=== PATIENT | female | born 1975 | race Caucasian/White ===

== ENCOUNTER 2018-08-14 19:39 | Inpatient (IN) | payer MEDICAID ==
[2018-08-14] MEDS ORDERED: LABETALOL HCL 20MG INJ IV (21:00)
[2018-08-14] MEDS ORDERED: MAGNESIUM SULFATE 4 GM/100 ML 100 ML (21:04)
[2018-08-14] MEDS ORDERED: MAGNESIUM SULFATE 20 GM/500 ML 500 ML IV (21:04)
[2018-08-14] MEDS: LACTATED RINGER'S 1,000 ML IV (21:23)
[2018-08-14] MEDS: MAGNESIUM SULFATE 4 GM/100 ML 100 ML IVPB (21:26)
[2018-08-14] MEDS ORDERED: LACTATED RINGER'S 1,000 ML IV (21:30)
[2018-08-14] MEDS: MAGNESIUM SULFATE 20 GM/500 ML 500 ML IV (21:47)
[2018-08-14 22:00] LABS: ADD MAN DIFF? NO
[2018-08-14 22:02] LABS: BASOPHILS % 0.3 % (0.0-2.0); EOSINOPHILS # 0.3 10^3/ul (0.0-0.5); EOSINOPHILS % 3.6 % (0.0-7.0); HEMATOCRIT 31.3 % (37.0-47.0); HEMOGLOBIN 11.1 g/dl (12.0-16.0); LYMPHOCYTES # 2.3 10^3/ul (0.8-2.9); LYMPHOCYTES % 25.6 % (15.0-51.0); MEAN CORPUSCULAR HEMOGLOBIN 31.4 pg (29.0-33.0); MEAN CORPUSCULAR HGB CONC 35.5 g/dl (32.0-37.0); MEAN CORPUSCULAR VOLUME 88.4 fl (82.0-101.0); MEAN PLATELET VOLUME 11.5 fl (7.4-10.4); MONOCYTE # 0.7 10^3/ul (0.3-0.9); MONOCYTES % 8.2 % (0.0-11.0); NEUTROPHIL # 5.6 10^3/ul (1.6-7.5); PLATELET COUNT 198 10^3/UL (140-415); RED BLOOD COUNT 3.54 10^6/ul (4.20-5.40); RED CELL DISTRIBUTION WIDTH 13.2 % (11.5-14.5)
[2018-08-14 22:07] LABS: ADD UMIC YES; UR ASCORBIC ACID NEGATIVE (NEGATIVE); UR BILIRUBIN (Dip) NEGATIVE (NEGATIVE); UR BLOOD (Dip) NEGATIVE (NEGATIVE); UR CLARITY CLOUDY (CLEAR); UR COLOR YELLOW (YELLOW); UR GLUCOSE (Dip) 1+ mg/dL (NEGATIVE); UR KETONES (Dip) TRACE mg/dL (NEGATIVE); UR LEUKOCYTE ESTERASE (Dip) NEGATIVE Leu/ul (NEGATIVE); UR MUCUS FEW /HPF (NONE SEEN); UR NITRITE (Dip) NEGATIVE (NEGATIVE); UR RBC 1 /HPF (0-5); UR SPECIFIC GRAVITY (Dip) 1.026 (1.003-1.030); UR SQUAMOUS EPITHELIAL CELL MANY /HPF (FEW); UR TOTAL PROTEIN (Dip) 2+ mg/dl (NEGATIVE); UR UROBILINOGEN (Dip) NEGATIVE (NEGATIVE); UR WBC 2 /HPF (0-5)
[2018-08-14 22:21] LABS: ALANINE AMINOTRANSFERASE 16 IU/L (13-69); ALBUMIN 3.5 g/dl (3.3-4.9); ALBUMIN/GLOBULIN RATIO 0.97; ALKALINE PHOSPHATASE 80 IU/L (42-121); ANION GAP 12 (5-13); ASPARTATE AMINO TRANSFERASE 19 IU/L (15-46); BILIRUBIN,INDIRECT 0.1 mg/dl (0-1.1); BILIRUBIN,TOTAL 0.1 mg/dl (0.2-1.3); BLOOD UREA NITROGEN 23 mg/dl (7-20); CALCIUM 9.5 mg/dl (8.4-10.2); CARBON DIOXIDE 21 mmol/L (21-31); CHLORIDE 104 mmol/L (97-110); CREATININE 0.64 mg/dl (0.44-1.00); Estimated GFR > 60 mL/min (>60); GLUCOSE 107 mg/dl (70-220); INR 0.87; PARTIAL THROMBOPLASTIN TIME 25.8 Sec (23.0-35.0); POTASSIUM 3.7 mmol/L (3.5-5.1); PROTIME 11.9 Sec (11.9-14.9); PT RATIO 0.9; SODIUM 137 mmol/L (135-144); TOTAL PROTEIN 7.1 g/dl (6.1-8.1); URIC ACID 6.1 mg/dl (3.1-7.9)
[2018-08-14] MEDS: LABETALOL HCL 20MG INJ IV ×2 (22:33→23:27)
[2018-08-14] MEDS: BETAMET NA PHOS/AC(6 MG/ML) 2 ML INJ SYG IM (23:22)
[2018-08-15] MEDS ORDERED: CEFAZOLIN 2 GM/50 ML (PMX) 50 ML IVPB (00:46)
[2018-08-15] MEDS: HYDROCODONE/APAP (5/325) TAB PO (00:55)
[2018-08-15] MEDS: LABETALOL HCL 20MG INJ IV ×5 (00:57→04:30)
[2018-08-15] MEDS ORDERED: CARBOPROST 250 MCG INJ IM ×2 (01:00→04:00)
[2018-08-15] MEDS ORDERED: OXYTOCIN 30 UNITS/LR 500 ML IV ×3 (01:00→04:00)
[2018-08-15] MEDS ORDERED: MISOPROSTOL 200 MCG TAB PR ×2 (01:00→04:00)
[2018-08-15] MEDS: LABETALOL 200 MG TAB PO ×4 (01:00→22:08)
[2018-08-15] MEDS ORDERED: METHYLERGONOVINE 0.2 MG INJ IM (01:00)
[2018-08-15 01:57] LABS: HEPATITIS B SURFACE ANTIGEN NEGATIVE (NEGATIVE)
[2018-08-15] MEDS ORDERED: morphine SULFATE/PF (10 MG/10 ML) INJ (02:08)
[2018-08-15] MEDS ORDERED: FENTAnyl 50 MCG/ML VIAL (02:08)
[2018-08-15] MEDS ORDERED: ONDANSETRON 4 MG INJ (02:08)
[2018-08-15] MEDS ORDERED: DEXAMETHASONE 4 MG/ML 1 ML INJ (02:09)
[2018-08-15] MEDS ORDERED: KETOROLAC 30 MG INJ ×2 (03:15→14:24)
[2018-08-15] MEDS ORDERED: MIDAZOLAM 1 MG/ML 2 ML INJ (03:29)
[2018-08-15] MEDS ORDERED: PROPOFOL 20 ML (03:37)
[2018-08-15] MEDS ORDERED: LIDOCAINE 2% (SDV) 5 ML INJ (03:37)
[2018-08-15] MEDS ORDERED: SUCCINYLCHOLINE CHLORIDE 100 MG/5 ML SYG IV (03:37)
[2018-08-15] MEDS: LACTATED RINGER'S 1,000 ML IV ×4 (03:39→21:32)
[2018-08-15] MEDS: hydrALAzine 20 MG INJ IV ×4 (03:53→05:46)
[2018-08-15] MEDS: CEFAZOLIN 2 GM/50 ML (PMX) 50 ML IVPB ×3 (03:55→18:40)
[2018-08-15] MEDS ORDERED: LABETALOL HCL 20MG INJ IV ×5 (04:00)
[2018-08-15] MEDS ORDERED: LANOLIN HPA 1 PKT TOP (04:00)
[2018-08-15] MEDS ORDERED: NACL 0.9% 3 ML SYG IV ×2 (04:00)
[2018-08-15] MEDS ORDERED: morphine (1 MG/ML) 10ML SYRINGE IV ×3 (04:00)
[2018-08-15] MEDS ORDERED: CA GLUCONATE (GM) 10% 10ML INJ IV (04:00)
[2018-08-15] MEDS ORDERED: ONDANSETRON 4 MG INJ IV (04:00)
[2018-08-15] MEDS: OXYTOCIN 30 UNITS/LR 500 ML IV ×3 (04:04→22:09)
[2018-08-15] MEDS: MAGNESIUM SULFATE 20 GM/500 ML 500 ML IV ×4 (04:07→18:40)
[2018-08-15 06:33] LABS: MAGNESIUM 4.7 mg/dl (1.7-2.5)
[2018-08-15] MEDS: DIPHENHYDRAMINE 50 MG INJ IV (10:10)
[2018-08-15 13:14] LABS: MAGNESIUM 6.4 mg/dl (1.7-2.5)
[2018-08-15] MEDS ORDERED: OXYCODONE/ACETAMINOPHEN (5/325) TAB (13:53)
[2018-08-15] MEDS: KETOROLAC 30 MG INJ IV ×2 (14:27→23:56)
[2018-08-15 14:30] LABS: ADD MAN DIFF? NO
[2018-08-15 14:34] LABS: WHITE BLOOD COUNT 14.7 10^3/ul (4.8-10.8)
[2018-08-15 14:34] LABS: BASOPHILS % 0.1 % (0.0-2.0); HEMOGLOBIN 11.5 g/dl (12.0-16.0); LYMPHOCYTES # 1.5 10^3/ul (0.8-2.9); LYMPHOCYTES % 10.1 % (15.0-51.0); MEAN CORPUSCULAR HEMOGLOBIN 31.2 pg (29.0-33.0); MEAN CORPUSCULAR HGB CONC 34.8 g/dl (32.0-37.0); MEAN CORPUSCULAR VOLUME 89.4 fl (82.0-101.0); MEAN PLATELET VOLUME 11.3 fl (7.4-10.4); MONOCYTE # 0.7 10^3/ul (0.3-0.9); MONOCYTES % 4.9 % (0.0-11.0); NEUTROPHIL # 12.4 10^3/ul (1.6-7.5); NEUTROPHILS % 84.6 % (39.0-77.0); PLATELET COUNT 220 10^3/UL (140-415); RED BLOOD COUNT 3.69 10^6/ul (4.20-5.40)
[2018-08-15 14:46] LABS: ADD UMIC YES; UR ASCORBIC ACID NEGATIVE (NEGATIVE); UR BILIRUBIN (Dip) NEGATIVE (NEGATIVE); UR BLOOD (Dip) 3+ mg/dL (NEGATIVE); UR CLARITY SLIGHTLY CLOUDY (CLEAR); UR COLOR YELLOW (YELLOW); UR GLUCOSE (Dip) 1+ mg/dL (NEGATIVE); UR KETONES (Dip) NEGATIVE (NEGATIVE); UR LEUKOCYTE ESTERASE (Dip) NEGATIVE Leu/ul (NEGATIVE); UR NITRITE (Dip) NEGATIVE (NEGATIVE); UR RBC > 182 /HPF (0-5); UR TOTAL PROTEIN (Dip) 2+ mg/dl (NEGATIVE); UR UROBILINOGEN (Dip) NEGATIVE (NEGATIVE); UR WBC 16 /HPF (0-5)
[2018-08-15 14:52] LABS: INR 0.92; PARTIAL THROMBOPLASTIN TIME 24.9 Sec (23.0-35.0); PROTIME 12.5 Sec (11.9-14.9)
[2018-08-15 14:57] LABS: ALANINE AMINOTRANSFERASE 18 IU/L (13-69); ALBUMIN 3.6 g/dl (3.3-4.9); ALBUMIN/GLOBULIN RATIO 1.05; ALKALINE PHOSPHATASE 81 IU/L (42-121); ANION GAP 11 (5-13); ASPARTATE AMINO TRANSFERASE 25 IU/L (15-46); BILIRUBIN,INDIRECT 0.2 mg/dl (0-1.1); BILIRUBIN,TOTAL 0.2 mg/dl (0.2-1.3); BLOOD UREA NITROGEN 17 mg/dl (7-20); CALCIUM 7.8 mg/dl (8.4-10.2); CARBON DIOXIDE 24 mmol/L (21-31); CHLORIDE 100 mmol/L (97-110); CREATININE 0.66 mg/dl (0.44-1.00); Estimated GFR > 60 mL/min (>60); GLUCOSE 106 mg/dl (70-220); POTASSIUM 4.2 mmol/L (3.5-5.1); SODIUM 135 mmol/L (135-144)
[2018-08-15 15:03] LABS: MAGNESIUM 6.5 mg/dl (1.7-2.5)
[2018-08-15] MEDS: SENNA/DOCUSATE NA (8.6MG/50MG) TAB PO ×2 (18:40→21:29)
[2018-08-15] MEDS ORDERED: LABETALOL 100 MG TAB PO (21:00)
[2018-08-15] MEDS ORDERED: METHYLDOPA 500 MG TAB PO (21:00)
[2018-08-15 21:20] LABS: MAGNESIUM 5.9 mg/dl (1.7-2.5)
[2018-08-15 21:42] LABS: RAPID PLASMA REAGIN NONREACTIVE (NR)
[2018-08-15] MEDS ORDERED: BETAMET NA PHOS/AC(6 MG/ML) 2 ML INJ SYG IM (23:00)
[2018-08-16] MEDS: OXYTOCIN 30 UNITS/LR 500 ML IV ×2 (00:04→10:04)
[2018-08-16 01:30] LABS: MAGNESIUM 5.6 mg/dl (1.7-2.5)
[2018-08-16] MEDS: OXYCODONE/ACETAMINOPHEN (5/325) TAB PO ×3 (03:00→21:11)
[2018-08-16] MEDS: CEFAZOLIN 2 GM/50 ML (PMX) 50 ML IVPB (03:01)
[2018-08-16] MEDS: hydrALAzine 20 MG INJ IV (03:08)
[2018-08-16] MEDS: IBUPROFEN 600 MG TAB PO ×4 (05:59→23:30)
[2018-08-16] MEDS: LABETALOL 200 MG TAB PO ×3 (06:29→22:02)
[2018-08-16] MEDS: LACTATED RINGER'S 1,000 ML IV (06:32)
[2018-08-16 08:04] LABS: ADD MAN DIFF? NO
[2018-08-16 08:10] LABS: BASOPHILS % 0.1 % (0.0-2.0); HEMATOCRIT 28.4 % (37.0-47.0); HEMOGLOBIN 10.1 g/dl (12.0-16.0); LYMPHOCYTES # 2.2 10^3/ul (0.8-2.9); LYMPHOCYTES % 18.1 % (15.0-51.0); MEAN CORPUSCULAR HEMOGLOBIN 31.9 pg (29.0-33.0); MEAN CORPUSCULAR HGB CONC 35.6 g/dl (32.0-37.0); MEAN CORPUSCULAR VOLUME 89.6 fl (82.0-101.0); MEAN PLATELET VOLUME 11.5 fl (7.4-10.4); MONOCYTE # 0.8 10^3/ul (0.3-0.9); MONOCYTES % 6.5 % (0.0-11.0); NEUTROPHILS % 74.9 % (39.0-77.0); PLATELET COUNT 203 10^3/UL (140-415); RED BLOOD COUNT 3.17 10^6/ul (4.20-5.40); RED CELL DISTRIBUTION WIDTH 13.5 % (11.5-14.5)
[2018-08-16] MEDS ORDERED: ASPIRIN 81 MG TAB PO (09:00)
[2018-08-16] MEDS: SENNA/DOCUSATE NA (8.6MG/50MG) TAB PO ×2 (09:04→21:10)
[2018-08-16] MEDS: FERROUS SULFATE (EC) 325 MG TAB PO ×2 (09:04→21:10)
[2018-08-16] MEDS: FOLIC ACID 1 MG TAB PO (09:04)
[2018-08-16] MEDS: NIFEdipine (XL) 30 MG TAB PO (17:06)
[2018-08-17] MEDS: IBUPROFEN 600 MG TAB PO ×3 (05:34→17:40)
[2018-08-17] MEDS: hydrALAzine 20 MG INJ IV ×2 (05:58→20:27)
[2018-08-17] MEDS: LABETALOL 200 MG TAB PO ×3 (06:53→22:18)
[2018-08-17] MEDS: NIFEdipine (XL) 30 MG TAB PO (06:54)
[2018-08-17] MEDS: BISACODYL 10 MG SUPP PR (07:00)
[2018-08-17] MEDS: FOLIC ACID 1 MG TAB PO (10:32)
[2018-08-17] MEDS: SENNA/DOCUSATE NA (8.6MG/50MG) TAB PO ×2 (10:32→20:40)
[2018-08-17] MEDS: FERROUS SULFATE (EC) 325 MG TAB PO ×2 (10:32→20:40)
[2018-08-17] MEDS: OXYCODONE/ACETAMINOPHEN (5/325) TAB PO (20:41)
[2018-08-18] MEDS: hydrALAzine 20 MG INJ IV (05:18)
[2018-08-18] MEDS: LABETALOL 200 MG TAB PO (05:29)
[2018-08-18] MEDS: LABETALOL 100 MG TAB PO ×3 (06:00→21:44)
[2018-08-18] MEDS: IBUPROFEN 600 MG TAB PO ×4 (06:00→17:40)
[2018-08-18] MEDS: SENNA/DOCUSATE NA (8.6MG/50MG) TAB PO ×2 (08:45→21:43)
[2018-08-18] MEDS: NIFEdipine (XL) 30 MG TAB PO (08:45)
[2018-08-18] MEDS: FERROUS SULFATE (EC) 325 MG TAB PO ×2 (08:45→21:55)
[2018-08-18] MEDS: FOLIC ACID 1 MG TAB PO (08:45)
[2018-08-18] MEDS: OXYCODONE/ACETAMINOPHEN (5/325) TAB PO (08:51)
[2018-08-19] MEDS: IBUPROFEN 600 MG TAB PO ×4 (00:03→18:00)
[2018-08-19] MEDS: OXYCODONE/ACETAMINOPHEN (5/325) TAB PO ×3 (03:42→15:09)
[2018-08-19] MEDS: LABETALOL 100 MG TAB PO ×2 (05:56→13:34)
[2018-08-19] MEDS: SENNA/DOCUSATE NA (8.6MG/50MG) TAB PO (08:42)
[2018-08-19] MEDS: FERROUS SULFATE (EC) 325 MG TAB PO (08:42)
[2018-08-19] MEDS: FOLIC ACID 1 MG TAB PO (08:42)
[2018-08-19] MEDS: NIFEdipine (XL) 30 MG TAB PO (08:43)
== END 2018-08-19 18:35 | disposition home or self-care (01) | DRG 788 ==
LOC: OBT 19:39 → L-D 08-15 00:43 → OBT 20:38 → L-D 20:38 → PP1 08-15 18:37
PROC: 10D00Z1 Extraction of Products of Conception, Low, Open Approach (ICD-10-PCS; principal; 2018-08-14)
DX: O14.14 Severe pre-eclampsia complicating childbirth (principal); Z3A.34 34 weeks gestation of pregnancy; Z37.0 Single live birth; O69.81X0 Labor and delivery complicated by cord around neck, without compression, not applicable or unspecified; O34.211 Maternal care for low transverse scar from previous cesarean delivery
CPT/HCPCS: 76815; 76818; 80053; 81001; 83735; 84560; 85025; 85384; 85610; 85730; 86592; 86850; 86900; 86901; 87340; 99464